=== PATIENT | female | born 1970 | race Caucasian/White ===

== ENCOUNTER 2016-12-09 09:57 | Outpatient (CLI) | payer OTHER ==
[2016-10-13 15:17] VITALS: BMI 36.8
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
== END 2016-12-09 09:58 | disposition home or self-care (01) ==
LOC: RAD 09:57
PROVIDERS: ATTEND Nurse Practitioner Family
DX: M25.561 Pain in right knee (principal)

== ENCOUNTER 2017-03-05 13:16 | Emergency (ER) ==
[2017-03-05 13:30] VITALS: BP 172/101; TEMP 98.3; BMI 34.4
[2017-03-05] MEDS ORDERED: ZOFRAN 4 MG/2 ML IM STA (13:45)
[2017-03-05] MEDS ORDERED: MORPHINE 4 MG/ML SYRINGE IM STA (13:45)
[2017-03-05 14:01] LABS: BASOPHILS % (AUTO) 0.4 % (0.0-3.0); EOSINOPHILS # (AUTO) 0.1 K/ul (0.0-0.7); EOSINOPHILS % (AUTO) 1.1 % (0.0-7.0); HEMATOCRIT 44.3 % (37.0-47.0); IMMATURE GRANULOCYTE % (AUTO) 0.3 % (0.0-5.0); LYMPHOCYTES # (AUTO) 1.8 K/uL (0.60-3.4); MEAN CORPUSCULAR HEMOGLOBIN 31.4 pg (27.0-31.0); MEAN CORPUSCULAR HGB CONC 33.9 (31.8-35.4); MEAN CORPUSCULAR VOLUME 92.7 fl (81.0-99.0); MONOCYTES # (AUTO) 0.5 K/uL (0.4-2.0); MONOCYTES % (AUTO) 6.7 (0-10); NEUTROPHILS # (AUTO) 4.8 K/ul (2.0-6.9); NEUTROPHILS % (AUTO) 66.5; PLATELET COUNT 250 10^3/uL (140-440); RED BLOOD COUNT 4.78 10^6/ul (4.20-5.40); WHITE BLOOD COUNT 7.28 K/ul (4.6-10.2)
[2017-03-05 14:02] LABS: BILIRUBIN,URINE Negative (NEGATIVE); KETONES,URINE 3+ (NEGATIVE); LEUKOCYTE ESTERASE ,URINE Trace (NEGATIVE); NITRITE,URINE Negative (NEGATIVE); PH,URINE 5.5 (5-9); PROTEIN,URINE Trace (NEGATIVE); URINE, BLOOD 3+ (NEGATIVE)
[2017-03-05 14:09] LABS: ADD URINE MICROSCOPIC YES
[2017-03-05 14:10] LABS: BACTERIA,URINE 1+ (NOT PRESENT)
[2017-03-05 14:13] LABS: SERUM PREGNANCY INTERNAL QC INTERNAL QC VALID
[2017-03-05 14:17] LABS: PARTIAL THROMBOPLASTIN TIME 25.2 SEC (23.9-40.0); PROTHROMBIN TIME 10.4 SEC (9.3-11.0)
[2017-03-05 14:24] LABS: ALBUMIN 3.9 g/dL (3.4-5.0); ALBUMIN/GLOBULIN RATIO 1.15; BILIRUBIN,TOTAL 0.36 mg/dL (0.00-1.20); BUN/CREATININE RATIO 11.94; CALCIUM 9.1 mg/dL (8.2-10.2); CREATININE 0.67 mg/dL (0.60-1.30); TOTAL PROTEIN 7.3 g/dL (6.4-8.2)
--- NOTE | 2017-03-05 15:10 | CT ---
EXAM: CT ABDOMEN AND PELVIS HISTORY: Lower abdominal pain, previous appendectomy TECHNIQUE: CT abdomen and pelvis without intravenous contrast. Images were reconstructed using 5 m m section thickness. Reformations were prepared. COMPARISON: 09/03/2016 FINDINGS: Diagnostic limitations exist without including contrast enhanced images. No focal hepatic or spleni c lesions identified. Gallbladder, pancreas and adrenal glands appear normal. No hydronephrosis or nephrolithiasis. Ureters are clear. Normal abdominal aorta. Stomach appears normal. Appendix is absent as described the patient's history. Normal bowel gas pa ttern and general appearance. The uterus is prominent in size. Urinary bladder is unremarkable. N o ascites or inflammatory infiltration of the abdominal fat. No abdominal wall hernia. Bones reveal moderate degenerative disc and facet disease of the lower sp ine. Lung bases are clear. No pneumoperitoneum. IMPRESSION: No acute intra-abdominal or pelvic abnormality identified.
--- NOTE | 2017-03-05 15:28 | ED.PDOC ---
General ED Provider: Dr. TALIA NUÑEZ Chief Complaint: Abdominal Pain Stated Complaint: abdominal pain Time Seen by Physician: 13:30 (vaginal light bleeding x1 day) Mode of Arrival: Walk-In Information Source: Patient Exam Limitations: No limitations [facility] Triage Documentation Reviewed and Agree: Yes GI Complaint Exam - Abdominal Pain Complaint/Exam Onset: Sudden (vaginal spotting , bleeding not active in the emergency room) Duration: lower abdominal pain Symptoms Are: Still present Timing: Constant Initial Severity: Moderate Current Severity: Moderate Location of Pain: RUQ, LLQ Character: Reports: Dull, Aching Aggravating: Reports: None Alleviating: Reports: None (vaginal spotting) Associated Signs and Symptoms: Reports: Vaginal bleeding. Denies: Diaphoresis, Fever, Cough, Chest pain, Dizziness, Back pain, Constipation, Blood in stool, Dysuria, Urinary frequency, Decreased urine output, Decreased appetite, Vaginal discharge, Nausea, Vomiting, Diarrhea, Sore throat, Decreased activity AAA Risk Factors: Reports: None Cardiac Risk Factors: Reports: None Ectopic Risk Factors: Reports: None Ovarian Torsion Risk Factors: Reports: None Surgical Obstruction Risk Factors: Reports: None Related Surgical History: Reports: None Patient Rh Status: Unknown Abdominal Findings: Present: None Review of Systems - Review Of Systems Constitutional: Reports: No symptoms Eyes: Reports: No symptoms Ears, Nose, Mouth, Throat: Reports: No symptoms Respiratory: Reports: No symptoms Cardiac: Reports: No symptoms GI: Reports: Abdominal pain : Reports: Other (vaginal bleeding) Musculoskeletal: Reports: No symptoms Skin: Reports: No symptoms Neurological: Reports: No symptoms Endocrine: Reports: No symptoms Hematologic/Lymphatic: Reports: No symptoms All Other Systems: Reviewed and Negative Past Medical History - Past Medical History Previously Healthy: No Endocrine: Reports: None Cardiovascular: Reports: None, Hypertension, A-Fib Respiratory: Reports: None Hematological: Reports: None Gastrointestinal: Reports: None Genitourinary: Reports: None, UTI (11/10/15) Neuro/Psych: Reports: Anxiety Musculoskeletal: Reports: None, Arthritis Cancer: Reports: None Last Menstrual Period: MARCH 2015 - Surgical History General Surgical History: Reports: Appendectomy, Other (rectal surgery) - Family History Family History: Reports: Unknown - Social History Smoking Status: Current every day smoker, Heavy tobacco smoker Hx Substance Use: No Alcohol Screening: None Physical Exam - Physical Exam Appearance: Well-appearing, No pain distress, Well-nourished Eyes: JUDY, EOMI, Conjunctiva clear ENT: Ears normal, Nose normal, Oropharynx normal Respiratory: Airway patent, Breath sounds clear, Breath sounds equal, Respirations nonlabored Cardiovascular: RRR, Pulses normal, No rub, No murmur GI/: Soft, Nontender, No masses, Bowel sounds normal, No Organomegaly Musculoskeletal: Normal strength, ROM intact, No edema, No calf tenderness Skin: Warm, Dry, Normal color Neurological: Sensation intact, Motor intact, Reflexes intact, Cranial nerves intact, Alert, Oriented Psychiatric: Affect appropriate, Mood appropriate Interpretation - Radiology Interpretation Radiology Interpretation By: Radiologist Radiology Results: No acute changes Critical Care Note - Critical Care Note Total Time (mins): 0 Course - Course Hematology/Chemistry: 03/05/17 13:55 03/05/17 13:55 Orders, Labs, Meds: Lab Review 03/05/17 03/05/17 13:50 13:55 WBC 7.28 RBC 4.78 Hgb 15.0 Hct 44.3 MCV 92.7 MCH 31.4 H MCHC 33.9 RDW Coeff of Dia 14.2 Plt Count 250 Immature Gran % (Auto) 0.3 Neut % (Auto) 66.5 Lymph % (Auto) 25.0 Kay % (Auto) 6.7 Eos % (Auto) 1.1 Baso % (Auto) 0.4 Immature Gran # (Auto) 0.0 Neut # 4.8 Lymph # 1.8 Kay # 0.5 Eos # 0.1 Baso # 0.0 PT 10.4 INR 1.01 APTT 25.2 Sodium 139 Potassium 4.0 Chloride 107 Carbon Dioxide 21 Anion Gap 15.0 BUN 8 Creatinine 0.67 Estimated GFR (MDRD) 94.00 BUN/Creatinine Ratio 11.94 Glucose 86 Calcium 9.1 Total Bilirubin 0.36 AST 17 ALT 17 Alkaline Phosphatase 65 Total Protein 7.3 Albumin 3.9 Globulin 3.4 Albumin/Globulin Ratio 1.15 Serum , Qual Negative Urine Color Yellow Urine Clarity Cloudy Urine pH 5.5 Ur Specific [place] 1.010 Urine Protein Trace Urine Glucose (UA) Negative Urine Ketones 3+ Urine Blood 3+ Urine Nitrite Negative Urine Bilirubin Negative Urine Urobilinogen 0.2 Ur Leukocyte Esterase Trace Urine Microscopic RBC 20-30 Urine Microscopic WBC 5-10 Ur Squamous Epith Cells 5-10 Urine Bacteria 1+ Orders Category Date Time Status CBC W/ AUTO DIFF Stat LAB 03/05/17 13:55 Completed COMPREHENSIVE METABOLIC PANEL Stat LAB 03/05/17 13:55 Completed PARTIAL THROMBOPLASTIN TIME Stat LAB 03/05/17 13:55 Completed PT WITH INR Stat LAB 03/05/17 13:55 Completed SERUM Stat LAB 03/05/17 13:55 Completed URINALYSIS C & S IF INDICATED Stat LAB 03/05/17 13:50 Completed URINE CULTURE Routine LAB 03/05/17 14:11 Received Morphine Sulfate [Morphine 4 mg/ml Syringe] MEDS 03/05/17 13:45 Discontinued 4 mg IM ONCE STA Ondansetron HCl/Pf [Zofran 4 mg/2 ml] MEDS 03/05/17 13:45 Discontinued 4 mg IM ONCE STA CT ABDOMEN/PELVIS WO CONTRAST Stat RADS 03/05/17 13:43 Completed Medications Discontinued Medications Generic Name Dose Route Start Last Admin Trade Name Freq PRN Reason Stop Dose Admin Morphine Sulfate 4 mg 03/05/17 13:45 03/05/17 14:07 Morphine 4 Mg/Ml Syringe IM 03/05/17 13:46 Not Given ONCE STA Ondansetron HCl 4 mg 03/05/17 13:45 03/05/17 14:07 Zofran 4 Mg/2 Ml IM 03/05/17 13:46 Not Given ONCE STA Vital Signs: Temp Pulse Resp BP Pulse Ox 03/05/17 13:25 98.3 F 81 16 172/101 H 95 Departure - Departure Time of Disposition: 15:28 Disposition: HOME SELF-CARE Discharge Problem: Abdominal pain, Vaginal bleeding Instructions: Acute Abdominal Pain (ED), Dysfunctional Uterine Bleeding (ED) Condition: Good Pt referred to PMD for follow-up: No Additional Instructions: Please call your Family Physician as soon as possible to schedule a follow-up appointment. Allergies/Adverse Reactions: Allergies bacitracin zinc [From Triple Antibiotic] Adverse Reaction (Verified 03/05/17 13: 18) ciprofloxacin HCl [From Cipro] Adverse Reaction (Verified 03/05/17 13:18) codeine Adverse Reaction (Verified 03/05/17 13:18) polymyxin B [From Triple Antibiotic] Adverse Reaction (Verified 03/05/17 13:18) polymyxin B sulfate [From Triple Antibiotic] Adverse Reaction (Verified 13:18) Sulfa (Sulfonamide Antibiotics) Adverse Reaction (Verified 03/05/17 13:18) sulfamethoxazole [From Bactrim] Adverse Reaction (Verified 03/05/17 13:18) trimethoprim [From Bactrim] Adverse Reaction (Verified 03/05/17 13:18) Home Medications: Ambulatory Orders Sertraline HCl [Zoloft] 200 mg PO BEDTIME 12/23/15 Alprazolam [Xanax] 1 mg PO TID 12/08/16 Hydrocodone/Acetaminophen [[place] 5-325 Tablet] 1 each PO Q6HR PRN #12 tablet 06/14
== END 2017-03-05 15:46 | disposition home or self-care (01) ==
LOC: ED 13:16
DX: R10.9 Unspecified abdominal pain (principal); N93.9 Abnormal uterine and vaginal bleeding, unspecified; I10 Essential (primary) hypertension; F17.210 Nicotine dependence, cigarettes, uncomplicated; Z79.899 Other long term (current) drug therapy
CPT/HCPCS: 36415; 80053; 81001; 84703; 85025; 85610; 85730; 87086; 99283

== ENCOUNTER 2017-09-03 06:50 | Outpatient (CLI) ==
--- NOTE | 2017-09-06 09:17 | ECHO2D ---
Date of Exam: 09/03/17 Ordering Physician: ARABELLA ALEJANDRO Room #: OP Reason for Echo: SYNCOPE AND COLLAPSE, PALPITATIONS M-Mode Normal Adult Results LV Dimensions Normal Adult Results AoV Opening excursions >1.6 >1.6 LVEDD-base- 3.5-5.8 3.7 Ao root dimensions 2.0-3.7 3.6 LVESD-base- 3.1-4.6 L. Atrium dimensions 1.9-3.8 3.8 Post. Wall thickness 0.8-1.1 1.2 IV septum (thickness) 0.7-1.2 1.2 Post. Wall excursion 0.72-1.3 NORMAL Septal motion NORMAL Systolic motion R. Ventricular cavity 1.5-2.0 NORMAL LVEF 60% 57% Paradoxical septal wall motion NORMAL 2-D : 2-D M Mode Echocardiogram was performed using apical four chamber and left parasternal long and short axis views. Mitral, tricuspid and aortic valves appear to be normal. Contractility of the left ventricle seems to be normal, so is the cavity size. Left atrial cavity size and aortic root appear to be normal. There is no pericardial effusion. There is no thrombus noted in the left ventricular or left aortic cavity. No mitral valve prolapse noted. M-MODE: MV: NORMAL AV: NORMAL TV: NORMAL PV: CHAMBER SIZE: NORMAL WALL MOTION: NORMAL PERICARDIUM: NORMAL INTERPRETATION: 1. BORDERLINE LEFT VENTRICULAR HYPERTROPHY 2. NORMAL LEFT VENTRICULAR CONTRACTILITY 3. NORMAL VALVES 4. NORMAL LEFT VENTRICLE SIZE/ LEFT ATRIAL SIZE MTDD
--- NOTE | 2017-09-06 09:25 | HOLTER ---
PATIENT INFORMATION AND COMMENTS Attending Physician: ARABELLA ALEJANDRO Indications: NEAR SYNCOPE __ Patient Medications: ZOLOFT, XANAX, ALBUTEROL, BLOOD PRESSURE MED __ Pre-procedure Summary: Protocol: Standard Heart Rate Started: 09/03/17850 Minimum: 54 BPM Weight: 215 LBS Ended: 09/04/17850 Maximum: 121 BPM Height: 70" Duration: 24 HOURS Average: 78 BPM _ INTERPRETATIONS/OBSERVATIONS: 1. BASIC RHYTHM: SINUS, RATE 55 BPM TO 121 BPM, AVERAGE 80 BPM 2. RARE PVC'S AND PAC'S 3. NO ST-T WAVE CHANGES FROM BASELINE 4. NO CORRELATION WITH ACTIVITY LOG MTDD
== END 2017-09-03 06:51 | disposition home or self-care (01) ==
LOC: CAR 06:50
PROVIDERS: ATTEND Family Medicine
DX: R00.2 Palpitations (principal); R55 Syncope and collapse
CPT/HCPCS: 93227

== ENCOUNTER 2017-11-02 13:54 | Outpatient (CLI) ==
--- NOTE | 2017-11-02 15:20 | DI ---
EXAM: Five views of the lumbar spine. History: Lower back pain. Findings: No acute fracture. Mild retrolisthesis of L3 on L4 and L4 on L5 most likely degenerative in nature. Moderate disc space narrowing at L3-L4, L4-L5 and L5-S1 with endplate sclerosis and osteo phyte formation. Moderate facet hypertrophy within the lower lumbar spine. Moderate degenerative heidi nges of the right sacroiliac joint Impression: 1. No acute osseous abnormality of the lumbar spine. 2. Moderate degenerative disc disease within the lower lumbar spine. 3. Moderate degenerative changes of the right sacroiliac joint
== END 2017-11-02 13:55 | disposition home or self-care (01) ==
LOC: RAD 13:54
PROVIDERS: ATTEND Physician Assistant
DX: M54.5 Low back pain (principal)

== ENCOUNTER 2017-11-13 14:08 | Emergency (ER) ==
[2017-11-13 14:19] VITALS: BP 177/118; TEMP 98.2; BMI 31.1
[2017-11-13] MEDS ORDERED: DECADRON 4 MG/ML SDV IM STA (14:38)
[2017-11-13] MEDS ORDERED: TORADOL IM STA (14:38)
--- NOTE | 2017-11-13 14:41 | ED.PDOC ---
General ED Provider: Dr. BRICE SANTACRUZ Chief Complaint: Hip Pain/Injury Stated Complaint: Came for the right hip pain, today is hurting more, no injury or falls. Time Seen by Physician: 14:40 Information Source: Patient Primary Care Provider: OSKAR YANG Nursing and Triage Documentation Reviewed and Agree: Yes Musculoskeletal Complaint Exam - Hip/Pelvis Complaint/Exam Location of Pain: Reports: Right Mechanism of Injury: Reports: No known trauma Symptoms Are: Still present Initial Severity: Severe Current Severity: Moderate Location: Reports: Discrete Character: Reports: Aching, Throbbing Aggravating: Reports: Movement, Weight bearing Alleviating: Reports: None Associated Signs and Symptoms: Denies: Swelling, Redness, Bruising, Fever, Weakness, Dizziness, Syncope, Abdominal pain, Knee pain Related History: Reports: Similar episode Able to Bear Weight: Yes Septic Arthritis Risk Factors: Reports: None Related Surgical History: Reports: None Tenderness: Present: Right Range of Motion Limited In: Present: Flexion, Extension Differential Diagnoses: Arthritis, Bursitis, Dislocation, Fracture, Sprain Review of Systems - Review Of Systems Constitutional: Reports: No symptoms Eyes: Reports: No symptoms Ears, Nose, Mouth, Throat: Reports: No symptoms Respiratory: Reports: No symptoms Cardiac: Reports: No symptoms GI: Reports: No symptoms : Reports: No symptoms Musculoskeletal: Reports: Back pain, Joint pain Skin: Reports: No symptoms Neurological: Reports: No symptoms Endocrine: Reports: No symptoms Hematologic/Lymphatic: Reports: No symptoms All Other Systems: Reviewed and Negative Past Medical History - Past Medical History Previously Healthy: No Endocrine: Reports: None Cardiovascular: Reports: None, Hypertension, A-Fib Respiratory: Reports: None Hematological: Reports: None Gastrointestinal: Reports: None Genitourinary: Reports: None, UTI (11/10/15) Neuro/Psych: Reports: Anxiety Musculoskeletal: Reports: None, Arthritis, Back Pain Cancer: Reports: None Last Menstrual Period: uterine ablasion - Surgical History General Surgical History: Reports: Appendectomy, Other (rectal surgery) - Family History Family History: Reports: Unknown - Social History Smoking Status: Current every day smoker, Heavy tobacco smoker Smoking Cessation Counseling Time: > 10 min Hx Substance Use: No Alcohol Screening: None Physical Exam - Physical Exam Appearance: Ill-appearing Pain Distress: Moderate Eyes: JUDY, EOMI, Conjunctiva clear ENT: Ears normal, Nose normal, Oropharynx normal Respiratory: Airway patent, Breath sounds clear, Breath sounds equal, Respirations nonlabored Cardiovascular: RRR, Pulses normal, No rub, No murmur GI/: Soft, Nontender, No masses, Bowel sounds normal, No Organomegaly Musculoskeletal: No edema, No calf tenderness, Limited ROM, Limited strength Skin: Warm, Dry, Normal color Neurological: Sensation intact, Motor intact, Reflexes intact, Cranial nerves intact, Alert, Oriented Psychiatric: Affect appropriate, Mood appropriate Interpretation - Radiology Interpretation Radiology Interpretation By: Radiologist Radiology Results: Positive Exam Interpreted: CT Scan Critical Care Note - Critical Care Note Total Time (mins): 15 Course - Course Orders, Labs, Meds: Orders Category Date Time Status Dexamethasone 4 mg/ml Inj [Decadron 4 mg/ml Sdv] MEDS 11/13/17 14:38 Discontinued 4 mg IM ONCE STA Ketorolac Tromethamine [Toradol] MEDS 11/13/17 14:38 Discontinued 60 mg IM ONCE STA CT HIP RIGHT WITHOUT CONTRAST Stat RADS 11/13/17 14:38 Completed Medications Discontinued Medications Generic Name Dose Route Start Last Admin Trade Name Freq PRN Reason Stop Dose Admin Dexamethasone Sodium Phosphate 4 mg 11/13/17 14:38 11/13/17 15:14 Decadron 4 Mg/Ml Sdv IM 11/13/17 14:39 4 mg ONCE STA Administration Ketorolac Tromethamine 60 mg 11/13/17 14:38 11/13/17 15:15 Toradol IM 11/13/17 14:39 Not Given ONCE STA Vital Signs: Temp Pulse Resp BP Pulse Ox 11/13/17 14:09 98.2 F 109 H 20 177/118 H 98 Departure - Departure Time of Disposition: 14:44 Disposition: HOME SELF-CARE Discharge Problem: Hip pain Instructions: Osteoarthritis (ED) Condition: Good Pt referred to PMD for follow-up: Yes Additional Instructions: rest Needs f/u with Ortho. Prescriptions: Oxycodone HCl/Acetaminophen [Percocet 5-325 mg Tablet] 1 tab PO TID PRN #7 tablet PRN Reason: PAIN Allergies/Adverse Reactions: Allergies bacitracin zinc [From Triple Antibiotic] Adverse Reaction (Verified 11/13/17 14: 19) ciprofloxacin HCl [From Cipro] Adverse Reaction (Verified 11/13/17 14:19) codeine Adverse Reaction (Verified 11/13/17 14:19) polymyxin B [From Triple Antibiotic] Adverse Reaction (Verified 11/13/17 14:19) polymyxin B sulfate [From Triple Antibiotic] Adverse Reaction (Verified 14:19) Sulfa (Sulfonamide Antibiotics) Adverse Reaction (Verified 11/13/17 14:19) sulfamethoxazole [From Bactrim] Adverse Reaction (Verified 11/13/17 14:19) trimethoprim [From Bactrim] Adverse Reaction (Verified 11/13/17 14:19) Home Medications: Ambulatory Orders Sertraline HCl [Zoloft] 200 mg PO BEDTIME 12/23/15 Alprazolam [Xanax] 1 mg PO BEDTIME 12/08/16 Albuterol Sulfate 0.083% Neb [Albuterol 0.083% Neb] 1 vial NEB RTQ4H 11/13/17 Oxycodone HCl/Acetaminophen [Percocet 5-325 mg Tablet] 1 tab PO TID PRN #7 tablet 11/13/17 Disposition Discussed With: Patient
--- NOTE | 2017-11-13 15:17 | CT ---
Exam: CT of the right hip without intravenous contrast. Comparison: CT abdomen pelvis performed on 03/05/2017. Reason for exam: Right hip pain. FINDINGS: No acute fracture or dislocation. The right femoral head articulates with the acetabulum. There is mild degenerative disease with osteophyte formation. Degenerative disease is seen in the l umbosacral spine with facet hypertrophy and sclerotic change. Impression: 1. No acute fracture or dislocation in the right hip with mild degenerative disease. 2. Moderate degenerative disease is seen in the partially imaged lumbosacral spine with intervertebr al body disc space height loss, vacuum disc phenomenon, and facet hypertrophy.
== END 2017-11-13 16:07 | disposition home or self-care (01) ==
LOC: ED 14:08
DX: M25.551 Pain in right hip (principal); F17.210 Nicotine dependence, cigarettes, uncomplicated
CPT/HCPCS: 96372; 99283

== ENCOUNTER 2019-04-03 13:34 | Emergency (ER) | payer OTHER ==
[2019-04-03 13:41] VITALS: BP 165/103; TEMP 98.9; BMI 33.5
[2019-04-03] MEDS ORDERED: SODIUM CHLORIDE 1,000 ML IV STA (14:18)
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
--- NOTE | 2019-04-03 16:06 | CT ---
EXAM: CT LUMBAR SPINE HISTORY: Injury, back pain TECHNIQUE: CT lumbar spine without contrast. 3-mm axial sections. Coronal and sagittal reformation s. FINDINGS: No acute fracture or loss of vertebral body height. Moderately severe degenerative changes of the sp ine. These degenerative changes lead to multilevel central canal and neural foraminal stenosis most apparent at L3/L4 and L4/L5 where there is moderate central canal stenosis and at least mild bilatera l neural foraminal narrowing. Bony spurring at L5/S1 leads to mild to moderate neural foraminal narr owing and minimal central stenosis. Subtle posterior spondylolisthesis of L3 on L4 by about 2 mm is likely related to the degenerative changes. No paraspinal fluid collection or hematoma. IMPRESSION: 1. Degenerative changes of the spine. No fracture.
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
== END 2019-04-03 17:09 | disposition home or self-care (01) ==
LOC: ED 13:34
DX: M54.2 Cervicalgia (principal); R51 Headache; S09.90XA Unspecified injury of head, initial encounter; R10.9 Unspecified abdominal pain; M54.9 Dorsalgia, unspecified; R07.89 Other chest pain; V89.2XXA Person injured in unspecified motor-vehicle accident, traffic, initial encounter; I10 Essential (primary) hypertension; F17.210 Nicotine dependence, cigarettes, uncomplicated
CPT/HCPCS: 36415; 80053; 85025; 96360; 96361; 99283

== ENCOUNTER 2019-07-17 08:25 | Emergency (ER) | payer OTHER ==
[2019-07-17 08:30] VITALS: TEMP 97.8; BMI 37.2
[2019-07-17] MEDS ORDERED: ANTIVERT PO STA (08:49)
[2019-07-17 09:08] LABS: URINE PREGNANCY TEST NEGATIVE (NEGATIVE)
[2019-07-17 09:46] VITALS: BP 150/82
[2019-07-17] MEDS ORDERED: BENADRYL IM STA (10:03)
--- NOTE | 2019-07-17 11:32 | CT ---
EXAM: CT Head HISTORY: Dizzy COMPARISON: 04/03/2019 TECHNIQUE: CT head performed without contrast FINDINGS: There is no mass effect, midline shift, or intracranial hemmorhage. Maynard white differenti ation is preserved. There is no extra-axial collection. The ventricles, sulci, and basal cisterns a re patent and symmetric. There is no depressed calvarial fracture. The mastoid air cells are clear. The visualized paranasal sinuses are clear. IMPRESSION: No acute intracranial abnormality.
--- NOTE | 2019-07-17 11:33 | CT ---
EXAM: CT PARANASAL SINUSES HISTORY: Dizziness, pain TECHNIQUE: CT paranasal sinuses without contrast. Detailed axial sections. Coronal and sagittal re formations. FINDINGS: There is minimal mucosal thickening in the floor of the left maxillary sinus. The sinuses were other treviño clear. Moderate nasal septal deviation is seen at its lower aspect toward the right. Nasal tur binates are grossly within normal limits. No postop changes of the sinuses are suggested. There is no sinus fluid. Incidental note of a trace left mastoid process effusion. IMPRESSION: 1. Minimal chronic paranasal sinusitis, left maxillary. 2. Nasal septal deviation. 3. Trace left mastoid process effusion.
--- NOTE | 2019-07-17 11:39 | ED.PDOC ---
General ED Provider: Dr. TALIA NUÑEZ Chief Complaint: Dizziness Stated Complaint: DIZZYNESS WHICH IS POSITION NO NEURO DEFICITS Time Seen by Physician: 08:30 Mode of Arrival: Wheelchair Information Source: Patient Exam Limitations: No limitations Nursing and Triage Documentation Reviewed and Agree: Yes Does patient meet sepsis criteria?: No System Inflammatory Response Syndrome: Not Applicable Sepsis Protocol: For patient's 13 years and over: Temp is 96.8 and below OR 101 and greater Pulse >90 BPM Resp >20/minute Acutely Altered Mental Status Are patient's symptoms suggestive of a new infection, such as: -Pneumonia -Skin, Soft Tissue -Endocarditis -UTI -Bone, Joint Infection -Implantable Device -Acute Abdominal Infection -Wound Infection -Meningitis -Blood Stream Catheter Infection -Unknown Neurological Complaint Exam - Dizziness Complaint/Exam Last Known Well: THIS AM UPON WAKING UP Onset: Sudden Duration: PRESENT Symptoms Are: Still present Timing: Intermittent Episodes Lasting: Seconds Initial Severity: Moderate Current Severity: Mild Character: Reports: Dizzy Aggravating: Reports: None Alleviating: Reports: None Associated Signs and Symptoms: Denies: Nausea, Vomiting, Diaphoresis, Tinnitus, Chest pain, Short of air, Palpitations, Unsteady gait, GI blood loss, Visual changes, Decreased oral intake, Change in medication, Change in diet, OTC meds, Loss of balance Cardiac Risk Factors: Reports: Hypertension, Smoking CVA Risk Factors: Reports: None, Smoking JVD Present: No Carotid Bruit Present: No Rectal Heme Positive: No Glascow Coma Scale (see protocol): 15 Nystagmus Present: No Gag Reflex Present: Yes Meningeal Signs Positive: No Focal Weakness: Present: None Focal Sensory Loss: Present: None Gait: Normal [id number]: Normal Findings Romberg Test Positive: No Differential Diagnoses: BPPV, Hypovolemia, Metabolic abnormalities Quality Indicators for Cardiac Chest Pain: EKG in 10min. Quality Indicators for AMI: EKG in 10min. Quality Indicator For Non-Traumatic Chest Pain/Syncope: EKG Performed Review of Systems - Review Of Systems Constitutional: Reports: No symptoms Eyes: Reports: No symptoms Ears, Nose, Mouth, Throat: Reports: No symptoms Respiratory: Reports: No symptoms Cardiac: Reports: No symptoms GI: Reports: No symptoms : Reports: No symptoms Musculoskeletal: Reports: No symptoms Skin: Reports: No symptoms Neurological: Reports: Other (VERTIGO) Endocrine: Reports: No symptoms Hematologic/Lymphatic: Reports: No symptoms All Other Systems: Reviewed and Negative Past Medical History - Past Medical History Previously Healthy: No Endocrine: Reports: None Cardiovascular: Reports: None, Hypertension, A-Fib Respiratory: Reports: None Hematological: Reports: None Gastrointestinal: Reports: None Genitourinary: Reports: None, UTI (11/10/15) Neuro/Psych: Reports: Anxiety Musculoskeletal: Reports: None, Arthritis, Back Pain Cancer: Reports: None Last Menstrual Period: n/a - Surgical History General Surgical History: Reports: Appendectomy, Other (rectal surgery) - Family History Family History: Reports: Unknown - Social History Smoking Status: Current every day smoker, Heavy tobacco smoker Hx Substance Use: No Alcohol Screening: None Physical Exam - Physical Exam Appearance: Well-appearing, No pain distress, Well-nourished Eyes: JUDY, EOMI, Conjunctiva clear ENT: Ears normal, Nose normal, Oropharynx normal Respiratory: Airway patent, Breath sounds clear, Breath sounds equal, Respirations nonlabored Cardiovascular: RRR, Pulses normal, No rub, No murmur GI/: Soft, Nontender, No masses, Bowel sounds normal, No Organomegaly Musculoskeletal: Normal strength, ROM intact, No edema, No calf tenderness Skin: Warm, Dry, Normal color Neurological: Sensation intact, Motor intact, Reflexes intact, Cranial nerves intact, Alert, Oriented Psychiatric: Affect appropriate, Mood appropriate - NIH Stroke Scale 1a. Level of Consciousness: 0=Alert and keenly responsive 1b. Level of Consciousness Questions: 0=Answers correctly to two questions 2. Best Gaze: 0=Normal 3. Visual: 0=No visual loss 4. Facial Palsy: 0=Normal 5a. Motor Left Arm: 0=No drift,arm holds 90 degrees for 10 sec., leg 30 degrees for 5 sec. 5b. Motor Right Arm: 0=No drift,arm holds 90 degrees for 10 sec., leg 30 degrees for 5 sec. 6a. Motor Left Le=No drift,arm holds 90 degrees for 10 sec., leg 30 degrees for 5 sec. 6b. Motor Right Le=No drift,arm holds 90 degrees for 10 sec., leg 30 degrees for 5 sec. 7. Limb Ataxia: 0=Absent 8. Sensory: 0=Normal 9. Best Language: 0=No aphasia 10. Dysarthria: 0=Normal 11. Extincion and Inattention: 0=Normal Stroke Scale Total: 0 Re-Evaluation - Re-Evaluation Time of Re-Evaluation: 10:00 Status: Improved Vital Signs Stable: Yes Pain Level: 0 Appearance: NAD Lungs: Clear Skin: Warm and Dry Neuro: Alert and Oriented X3 CV: RRR Additional Comments: PRESENT MukeshT - Re-Evaluation Time of Re-Evaluation: 11:40 Status: Improved Vital Signs Stable: Yes Pain Level: 0 Appearance: NAD Skin: Warm and Dry Neuro: Other (NO DEFICITS NOTED) CV: RRR Critical Care Note - Critical Care Note Total Time (mins): 0 Course - Course Hematology/Chemistry: 07/17/19 08:50 07/17/19 08:58 Orders, Labs, Meds: Lab Review 07/17/19 07/17/19 07/17/19 08:45 08:45 08:50 WBC 5.70 RBC 4.53 Hgb 14.2 Hct 43.0 MCV 94.9 MCH 31.3 H MCHC 33.0 RDW Coeff of Dia 13.0 Plt Count 211 Immature Gran % (Auto) 0.4 Neut % (Auto) 56.4 Lymph % (Auto) 32.1 [place] % (Auto) 8.1 Eos % (Auto) 2.5 Baso % (Auto) 0.5 Immature Gran # (Auto) 0.0 Neut # (Auto) 3.2 Lymph # (Auto) 1.8 [place] # (Auto) 0.5 Eos # (Auto) 0.1 Baso # (Auto) 0.0 Sodium Potassium Chloride Carbon Dioxide Anion Gap BUN Creatinine Estimated GFR (MDRD) BUN/Creatinine Ratio Glucose Calcium Total Bilirubin AST ALT Alkaline Phosphatase Total Protein Albumin Globulin Albumin/Globulin Ratio Urine Color Yellow Urine Clarity Clear Urine pH 7.0 Ur Specific [place] 1.010 Urine Protein Negative Urine Glucose (UA) Negative Urine Ketones Negative Urine Blood Negative Urine Nitrite Negative Urine Bilirubin Negative Urine Urobilinogen 0.2 Ur Leukocyte Esterase Negative Urine Test Negative 07/17/19 08:58 WBC RBC Hgb Hct MCV MCH MCHC RDW Coeff of Dia Plt Count Immature Gran % (Auto) Neut % (Auto) Lymph % (Auto) [place] % (Auto) Eos % (Auto) Baso % (Auto) Immature Gran # (Auto) Neut # (Auto) Lymph # (Auto) [place] # (Auto) Eos # (Auto) Baso # (Auto) Sodium 138.4 Potassium 4.13 Chloride 106.8 Carbon Dioxide 30.1 H Anion Gap 5.63 BUN 12.0 Creatinine 0.78 Estimated GFR (MDRD) 78.00 BUN/Creatinine Ratio 15.38 Glucose 121.6 H Calcium 9.31 Total Bilirubin 0.42 AST 21.5 ALT 17.8 Alkaline Phosphatase 82.6 Total Protein 7.28 Albumin 4.39 Globulin 2.89 Albumin/Globulin Ratio 1.51 Urine Color Urine Clarity Urine pH Ur Specific [place] Urine Protein Urine Glucose (UA) Urine Ketones Urine Blood Urine Nitrite Urine Bilirubin Urine Urobilinogen Ur Leukocyte Esterase Urine Test Orders Category Date Time Status EKG-(ED ONLY) Stat CARDIO 07/17/19 08:55 Completed CBC W/ AUTO DIFF Stat LAB 07/17/19 08:50 Completed COMPREHENSIVE METABOLIC PANEL Stat LAB 07/17/19 08:58 Completed URINALYSIS C & S IF INDICATED Stat LAB 07/17/19 08:45 Completed URINE Stat LAB 07/17/19 08:45 Completed Diphenhydramine Inj [Benadryl] MEDS 07/17/19 10:03 Discontinued 25 mg IM ONCE STA Meclizine HCl [Antivert] MEDS 07/17/19 08:49 Discontinued 25 mg PO ONCE STA CT HEAD W/O CONTRAST Stat RADS 07/17/19 08:[address] SINUSES W/O CONTRAST Stat RADS 07/17/19 10:08 Completed Medications Discontinued Medications Generic Name Dose Route Start Last Admin Trade Name Freq PRN Reason Stop Dose Admin Diphenhydramine HCl 25 mg 07/17/19 10:03 07/17/19 10:07 Benadryl IM 07/17/19 10:04 25 mg ONCE STA Administration Meclizine HCl 25 mg 07/17/19 08:49 07/17/19 08:58 Antivert PO 07/17/19 08:50 25 mg ONCE STA Administration Vital Signs: Temp Pulse Resp BP Pulse Ox 07/17/19 09:46 150/82 H 07/17/19 08:25 97.8 F 79 20 181/133 H 96 Departure - Departure Time of Disposition: 11:37 Disposition: HOME SELF-CARE Discharge Problem: Dizziness Instructions: Dizziness (ED), Lightheadedness (ED), Vertigo (ED), How to Stop Smoking (ED), Secondhand Smoke Exposure in Children (ED), Tobacco Stomatitis (DC ) Condition: Good Pt referred to PMD for follow-up: Yes IPMP verified?: No Additional Instructions: Please call your Family Physician as soon as possible to schedule a follow-up appointment.DIZZINESS, VERTIGO CAN AT TIMES BE A SIGN OF STROKE EITHER IMPEDING OR OR IN PROGRESS. YOUR NEURO EXAM AT THIS TIME IS NOT SUPPORTIVE OF THIS ISSUE. IF YOUR CANT TALK, WALK, , SEE THIS IS MAJOR ISSUE AND YOU MUST RETURN TO E.R. AT ONCE Prescriptions: Meclizine HCl [Antivert] 25 mg PO BID 2 Days #4 tablet Allergies/Adverse Reactions: Allergies bacitracin zinc [From Triple Antibiotic] Adverse Reaction (Verified 07/17/19 08: 30) ciprofloxacin HCl [From Cipro] Adverse Reaction (Verified 07/17/19 08:30) codeine Adverse Reaction (Verified 07/17/19 08:30) polymyxin B [From Triple Antibiotic] Adverse Reaction (Verified 07/17/19 08:30) polymyxin B sulfate [From Triple Antibiotic] Adverse Reaction (Verified 08:30) Sulfa (Sulfonamide Antibiotics) Adverse Reaction (Verified 07/17/19 08:30) sulfamethoxazole [From Bactrim] Adverse Reaction (Verified 07/17/19 08:30) trimethoprim [From Bactrim] Adverse Reaction (Verified 07/17/19 08:30) Home Medications: Ambulatory Orders Sertraline HCl [Zoloft] 200 mg PO BEDTIME 12/23/15 Alprazolam [Xanax] 1 mg PO BID 12/08/16 Albuterol Sulfate 0.083% Neb [Albuterol 0.083% Neb] 1 vial NEB RTQ4H PRN Lisinopril 20 mg PO DAILY 06/08/19 Budesonide/Formoterol Fumarate [Symbicort 160-4.5 Mcg Inhaler] 1 puff IH DAILY 07/17/19 Meclizine HCl [Antivert] 25 mg PO BID 2 Days #4 tablet 07/17/19 Disposition Discussed With: Patient, Family
== END 2019-07-17 11:58 | disposition home or self-care (01) ==
LOC: ED 08:25
DX: R42 Dizziness and giddiness (principal); I10 Essential (primary) hypertension; F17.210 Nicotine dependence, cigarettes, uncomplicated
CPT/HCPCS: 36415; 80053; 81001; 81025; 85025; 93005; 93010; 96372; 99283